=== PATIENT | female | born 1945 | race Caucasian/White ===

== ENCOUNTER 2022-06-26 22:58 | Emergency (ER) | payer OTHER ==
[2022-06-26 23:09] VITALS: BP 150/72; PULSE 65; RESP 20; TEMP 98.4; BMI 22.8
[2022-06-26] MEDS ORDERED: AMOX TR/POT CLAV 875MG/125MG TABLETS (FP) PO ONE (23:24)
[2022-06-26] MEDS ORDERED: RABIES IMMUNE GLOBULIN 300 UNITS/1 ML VIAL IM ONE (23:26)
[2022-06-26] MEDS ORDERED: DIPHTH,PERTUSS(ACELL),TET 0.5 ML DISP.SYRIN IM ONE ×2 (23:26→23:31)
[2022-06-26] MEDS ORDERED: RABIES VACCINE (PCEC)/PF 2.5 UNIT/VIAL IM ONE ×2 (23:26→23:35)
[2022-06-26] MEDS ORDERED: AMOX TR/POT CLAV 875MG/125MG TABLETS (FP) ONE (23:31)
[2022-06-26] MEDS ORDERED: RABIES IMMUNE GLOBULIN 300 UNITS/1 ML VIAL ONE (23:33)
== END 2022-06-27 01:17 | disposition home or self-care (01) ==
LOC: JER 22:58
PROC: 3E0234Z Introduction of Serum, Toxoid and Vaccine into Muscle, Percutaneous Approach (ICD-10-PCS; principal; 2022-06-26)
PROC: 3E0234Z Introduction of Serum, Toxoid and Vaccine into Muscle, Percutaneous Approach (ICD-10-PCS; 2022-06-26)
PROC: 3E0234Z Introduction of Serum, Toxoid and Vaccine into Muscle, Percutaneous Approach (ICD-10-PCS; 2022-06-26)
DX: S81.052A Open bite, left knee, initial encounter (principal); W54.0XXA Bitten by dog, initial encounter; Y92.009 Unspecified place in unspecified non-institutional (private) residence as the place of occurrence of the external cause
CPT/HCPCS: 90375; 90471; 90675; 90715; 99284-25

== ENCOUNTER 2022-09-20 15:06 | Emergency (ER) | payer OTHER ==
[2022-09-20 15:16] VITALS: BP 147/84; PULSE 87; RESP 18; TEMP 98.2; BMI 21.1
[2022-09-20] MEDS ORDERED: ACETAMINOPHEN 325 MG TABLET (FP) PO ONE (16:15)
[2022-09-20] MEDS ORDERED: LIDOCAINE 5% TOPICAL PATCH TP ONE (16:16)
[2022-09-20] MEDS ORDERED: LIDOCAINE 5% TOPICAL PATCH ONE (16:21)
[2022-09-20] MEDS ORDERED: ACETAMINOPHEN 325 MG TABLET (FP) ONE (16:21)
[2022-09-20] MEDS ORDERED: LIDOCAINE PATCH REMOVAL MC SCH (22:00)
== END 2022-09-20 17:05 | disposition home or self-care (01) ==
LOC: JERFT 15:06
DX: M54.50 Low back pain, unspecified (principal); M25.551 Pain in right hip; W10.8XXA Fall (on) (from) other stairs and steps, initial encounter
CPT/HCPCS: 99283-25